=== PATIENT | female | born 1975 | race Caucasian/White ===

== ENCOUNTER → 2016-05-27 | Outpatient (CLI) | payer OTHER | LOC: FIMAGING 12:34 | PROVIDERS: ATTEND Allergy & Immunology Allergy | DX: J01.00 Acute maxillary sinusitis, unspecified (principal) ==

== ENCOUNTER → 2016-06-14 | Outpatient (CLI) | payer OTHER | LOC: FIMAGING 07:23 | DX: Z12.31 Encounter for screening mammogram for malignant neoplasm of breast (principal) | CPT/HCPCS: G0202 ==

== ENCOUNTER → 2017-03-04 | Outpatient (CLI) | payer OTHER | LOC: FIMAGING 08:01 | PROVIDERS: ATTEND Internal Medicine | DX: N63.20 Unspecified lump in the left breast, unspecified quadrant (principal); N83.291 Other ovarian cyst, right side; D25.1 Intramural leiomyoma of uterus | CPT/HCPCS: G0206 ==

== ENCOUNTER → 2017-03-17 | Outpatient (CLI) | payer OTHER ==
[~2017-03-17] MED LIST: GADOBUTROL 10 ML VIAL IVP ONE
== END ==
LOC: FIMAGING 15:05
PROVIDERS: ATTEND Internal Medicine
DX: N83.201 Unspecified ovarian cyst, right side (principal)
CPT/HCPCS: A9585

== ENCOUNTER → 2017-03-20 | Outpatient (CLI) | payer OTHER | LOC: FIMAGING 14:46 | PROVIDERS: ATTEND Otolaryngology | DX: J32.9 Chronic sinusitis, unspecified (principal) ==

== ENCOUNTER → 2017-06-27 | Outpatient (CLI) | payer OTHER | LOC: FIMAGING 08:03 | PROVIDERS: ATTEND Nurse Practitioner Adult Health | DX: Z12.31 Encounter for screening mammogram for malignant neoplasm of breast (principal) ==

== ENCOUNTER 2018-06-29 09:36 | Emergency (ER) | payer OTHER ==
--- NOTE | 2018-06-29 11:30 | EDPHY ---
H & P Time Seen by Provider: 06/29/18 09:38 HPI/ROS: CHIEF COMPLAINT: Back pain HISTORY OF PRESENT ILLNESS: Patient states she has had some "odd" back pain on the left side since p.m.. She states it woke her from sleep night, the pain was "really bad" and she had some nausea at the time. She took some ibuprofen which helped. She describes the pain as on the left, in the middle with radiation out and down. She was woken sleep both Friday and Friday with similar pain. She has use ice as well as ibuprofen both the which helped although ibuprofen did not help much yesterday. She has had no vomiting. She has had no trauma. She denies increased pain with movement. She has had no fevers. She has never had this pain before. She denies any dysuria but states sometimes when the pain is bad she can feel it down into her bladder region. REVIEW OF SYSTEMS: Constitutional: No fever, no chills. Eyes: No discharge. ENT: No sore throat. Cardiovascular: No chest pain, no palpitations. Respiratory: No cough, no shortness of breath. Gastrointestinal: No vomiting or diarrhea. Genitourinary: No dysuria. No visible hematuria. Musculoskeletal: Back pain as described above. No trauma. Skin: No rashes. Neurological: No headache. General Appearance: Alert, no distress. Eyes: Pupils equal and round no pallor or injection. ENT, Mouth: Mucous membranes moist. Respiratory: There are no retractions, lungs are clear to auscultation. Cardiovascular: Regular rate and rhythm. Normal femoral pulses. Gastrointestinal: Abdomen is soft and nontender, no masses, bowel sounds normal. Neurological: Awake, alert, no focal neurologic deficits. Skin: Warm and dry, no rashes. Musculoskeletal: Neck is supple nontender. Extremities are symmetrical, full range of motion, no edema. Psychiatric: Patient is oriented X 3, there is no agitation. Medical/surgical history: Asthma, rheumatic fever as child, AFib episode in 3rd trimester. Social history: No tobacco or drugs, occasional alcohol. Smoking Status: Former smoker Constitutional: Initial Vital Signs Temperature (C) 36.8 C 06/29/18 09:41 Heart Rate 74 06/29/18 09:41 Respiratory Rate 16 06/29/18 09:41 Blood Pressure 133/104 H 06/29/18 09:41 O2 Sat (%) 98 06/29/18 09:41 O2 Delivery Mode Room Air Allergies/Adverse Reactions: pet dander Allergy (Uncoded 06/29/18 09:44) Pt reports nasal congestion, wheezing Home Medications: Medication Instructions Recorded Albuterol 06/29/18 Flonase Nasal [place] 06/29/18 Hydrocodone/Acetaminophen 2 each PO Q4-6PRN PRN #10 tablet 06/29/18 [Hydrocodon-Acetaminophen 5-325] Ibuprofen 06/29/18 Multivitamin 06/29/18 Ondansetron Odt [Zofran Odt] 4 mg PO Q4 PRN 3 Days #10 tab 06/29/18 Tamsulosin HCl [Flomax 0.4 MG (*)] 0.4 mg PO DAILY #5 cap 06/29/18 Medical Decision Making - Diagnostics Imaging Results: Imaging Impressions Abdomen/Pelvis CT 06/29/18 10:44 Impression: 1. 2 mm calculus at the left ureterovesical junction with mild left hydroureter and hydronephrosis. 2. Mild degenerative change in the lower lumbar spine. Degenerative change in both sacroiliac joints. Results called and discussed with Christine Sheridan MD on 06/29/2018 at 11:19 a.m. Attention: This CT examination is specifically designed to evaluate patients who are clinically suspected of having acute obstructive uropathy. This examination does not use radiographic contrast, and as such, provides only a limited evaluation of the abdomen, pelvis and retroperitoneum. If there is further clinical suspicion for pathological conditions other than obstructive uropathy, a complete CT evaluation of the abdomen and pelvis utilizing intravenous, oral, and rectal contrast should be considered. Imaging: Discussed imaging studies w/ call center support consultant Radiologist ED Course/Re-evaluation: Discussed CT results with patient. Minimal pain currently not asking for pain medications at this time. Blood pressure still elevated. Differential Diagnosis: Differential diagnosis includes but is not limited to urinary tract infection, pyelonephritis, kidney stone, musculoskeletal back pain, aortic dissection. After evaluation patient found have a 2 mm obstructing stone at the left UVJ with mild hydro. No signs of infection, vascular abnormality, intolerance of p. O.. Will start patient on tamsulosin. Also written for Zofran and [place] for pain and nausea as needed. Suspect will not need urologic follow-up as stone is small an at the UVJ. Indications to return or get urologic follow-up discussed with patient. Stable for discharge. - Data Points Laboratory Results: 06/29/18 10:55 POC Sodium 141 mEq/L mEq/L (135-145) POC Potassium 4.0 mEq/L mEq/L (3.3-5.0) POC Chloride 108.0 mEq/L mEq/L (97-110) POC Total CO2 26 mEq/L mEq/L (22-31) POC BUN 11 mg/dL mg/dL (7-23) POC Creatinine 1.0 mg/dL mg/dL (0.6-1.0) POC Glucose 97 mg/dL mg/dL (70-100) POC Calcium 9.2 mg/dL mg/dL (8.5-10.4) Point of Care Test Results: CBC CBC Collection Date 06/29/18 CBC Collection Time 10:50 WBC 7.22 RBC 4.21 HGB 13.7 HCT 41.0 PLT 253 Neut # 4.93 Neut 68.3 LYMPH # 1.49 LYMPH 20.6 MCV 97.4 Chemistry 06/29/18 10:55 POC Sodium 141 mEq/L mEq/L (135-145) POC Potassium 4.0 mEq/L mEq/L (3.3-5.0) POC Chloride 108.0 mEq/L mEq/L (97-110) POC Total CO2 26 mEq/L mEq/L (22-31) POC BUN 11 mg/dL mg/dL (7-23) POC Creatinine 1.0 mg/dL mg/dL (0.6-1.0) POC Glucose 97 mg/dL mg/dL (70-100) POC Calcium 9.2 mg/dL mg/dL (8.5-10.4) Urine Collection Date 06/29/18 Collection Time 09:46 HCG Results Negative Urine Dip Collection Date 06/29/18 Collection Time 09:46 Specific [place] (1.002-1.030) 1.020 PH (5.0-7.5) 7.0 Leukocytes (Negative) Trace Nitrites (Negative) Negative Protein (Negative) Trace Glucose (Negative) Negative Ketones (Negative) Negative Urobilnogen (0.2-1.0 EU) 0.2 Bilirubin (Negative) Negative Blood (Negative) Trace Departure - Departure Disposition: Home, Routine, Self-Care Clinical Impression: Kidney stone on left side Condition: Good Instructions: Kidney Stones (ED) Additional Instructions: Stay well hydrated. Use the tamsulosin every day for the next 5 days. Zofran and [place] for pain and nausea as needed. Ibuprofen orally for pain otherwise. Follow-up with urologist if your symptoms persist. Return to the emergency department if he developed more severe symptoms such as intractable vomiting, fever, too much pain. Referrals: Felisha Trevizo MD [Primary Care Provider] - As per Instructions Prescriptions: Hydrocodone/Acetaminophen [Hydrocodon-Acetaminophen 5-325] 2 each PO Q4-6PRN PRN #10 tablet PRN Reason: Pain, Moderate Ondansetron Odt [Zofran Odt] 4 mg PO Q4 PRN 3 Days #10 tab PRN Reason: Nausea/Vomiting, Use 1st Tamsulosin HCl [Flomax 0.4 MG (*)] 0.4 mg PO DAILY #5 cap
[2018-06-29 11:44] VITALS: BP 128/104
== END 2018-06-29 11:35 | disposition home or self-care (01) ==
LOC: CED 09:36
DX: N20.0 Calculus of kidney (principal)
CPT/HCPCS: 74176-PO; 80048-ER; 81025-ER; 85025-QW-ER; 99284-ER

== ENCOUNTER → 2018-08-25 | Outpatient (CLI) | payer OTHER | LOC: FIMAGING 07:21 | PROVIDERS: ATTEND Obstetrics & Gynecology | DX: Z12.31 Encounter for screening mammogram for malignant neoplasm of breast (principal); Z80.3 Family history of malignant neoplasm of breast ==